=== PATIENT | male | born 1940 | race Caucasian/White ===

== ENCOUNTER → 2017-05-25 | Day surgery (SDC) | payer MEDICARE, OTHER ==
[~2017-05-25] VITALS: Ht 172.7 cm; Wt 93.0 kg
[2017-05-25] VITALS (10 sets, daily range): BP systolic 142–165; BP diastolic 61–79; PULSE 63–78; RESP 13–19; O2SAT 93–100
[~2017-05-25] MED LIST: ADV250INH IH; ALBU8.5H2 INHALATION; ALFU10TA11 PO; AMLO10TA3 PO; ASPI-973 PO; ATOR40TA69 PO; Dexamethasone 4 mg/mL Inj IVPUSH PRN; EPHEDrine Sulfate 50 mg/mL Inj IVPUSH PRN; FLUT16SP NS; FUR20 PO; Furosemide 10 mg/mL 2 mL Inj IV ONE; HYDR-4003 PO; HYDROmorphone 1 mg/mL Inj IVPUSH PRN; KETO10TA PO; Ketamine 10 mg/mL 20 mL Inj ONE; LEVO75TA4 PO; Lactated Ringer's 1,000 ML IV SCH; Lactated Ringer's 500 ML IV PRN; MULT1CAP33 PO; MetoCLOpramide 5 mg/mL 2 mL Inj IVPUSH PRN; ONDA-53 PO; OXYC-530 PO; Ondansetron 2 mg/mL 2 mL Inj IVPUSH PRN; Ondansetron 2 mg/mL 2 mL Inj ONE; PANT40TA3 PO; Phenylephrine 10,000 mCg/mL Inj IVPUSH PRN; Promethazine ORAL; Propofol 10,000 mCg/mL 20 mL Inj ONE; TAMS0.4C98 PO; fentaNYL-PF 50 mCg/mL 2 mL Inj IVPUSH PRN; oxyCODONE-Acetamin 5-325 mg Tablet PO PRN
--- NOTE | 2017-05-25 08:28 | PCM.HPANE ---
Patient Data Surgeon Admitting Provider: Attending Provider:Niko Castañeda MD Primary Care Physician:Gianni Delatorre MD Other [place] Anest[place] Reason for Visit Left Ureteral Calculus Ht/WT & BMI Height (Feet): 5 Height (Inches): 8 Weight (Kilograms): 99.34 Body Mass Index 33.00 Allergies Coded Allergies: tramadol (Verified Allergy, Severe, SHORT OF BREATH, 05/25/17) metoprolol (Verified Adverse Reaction, Severe, LOW HEART RATE AND FATIGUE , 05/25/17) lisinopril (Verified Adverse Reaction, Intermediate, COUGH, 05/25/17) losartan (Verified Adverse Reaction, Unknown, 05/25/17) Past Anesthesia History Anesthesia History: Denies:: Abnormal Airway, Anesthesia Reactions (felt "panicky" last surgery when mask placed, felt as if he struggled), Difficult Intubation, Fam Anesthesia Reaction, Fam Malignant Hypertherm, Malignant Hyperthermia Diabetes History Hx Diabetes?: No MRSA MRSA: No Medications Hypertension Medication: Yes Home Meds Incl Beta Bita: No Reported Medications Ondansetron 4 Mg Tablet4 Mg PO QID 05/12/17 Hydrocodone-Acetaminophen 5-325 mg 1 Each Tablet1 Tablet PO Q4H PRN For Pain Ref 0 05/12/17 Levothyroxine 75 Mcg [id number] Mcg PO DAILY Ref 0 05/12/[address] 40 Mg Tablet.dr40 Mg PO DAILY Ref 0 05/12/17 Albuterol HFA (Proair HFA)8.5 Gm Hfa.aer.ad2 Puffs INHALATION Q4H #1 INHALER 05/12/17 Amlodipine 10 Mg Xpaylt91 Mg PO DAILY Ref 0 05/12/17 Fluticasone/Salmeterol (Advair 250-50 Diskus)60 Puff/Inh Disk1 Puff IH BID #1 DISK Ref 0 05/12/17 Fluticasone Propionate (Fluticasone Propionate Nasal)16 Gm [place].susp2 [place] NS BID #16 GM Ref 0 05/12/17 Aspirin 81 Mg Nkdgpp41 Mg PO DAILY Ref 0 05/12/17 Tamsulosin (Flomax)0.4 Mg Capsule0.4 Mg PO DAILY Ref 0 05/12/17 Atorvastatin Calcium 40 Mg Lfytnk90 Mg PO DAILY Ref 0 05/12/17 Furosemide 20 Mg Tab20 Mg PO DAILY 30 Days Ref 0 05/12/17 Multivitamin (Multivitamins)1 Each Capsule1 Each PO QPM 05/12/17 Discontinued Reported Medications [Promethazine] No Conflict CheckUnknown Dose ORAL 05/12/17 Ketorolac Tromethamine 10 Mg Mgioay44 Mg PO QID 30 Days 05/12/17 Alfuzosin ER 10 Mg Tab.er.24h10 Mg PO DAILY 05/12/17 oxyCODONE 5 Mg Tablet5 Mg PO Q4H PRN For Pain Ref 0 05/12/17 History History of ENT Problems?: Yes HEENT History: Positive for:: Cataracts Denies:: Abnormal Airway Difficult Intubation Dysphagia Sinus Problem Denture Type: None Teeth Condition: Within Normal Limits Hx of Heart Problems?: Yes Cardiovascular History: Positive for:: Chest Pain Hypertension Hx of Respiratory Problem?: Yes Respiratory History: Positive for:: Asthma (seasonal) Dyspnea Pneumonia Denies:: COPD Chest Surgery Emphysema Hemoptysis Oxygen Administration Tuberculosis Use of C-PAP Machine Hx Neurologic Problems?: Yes Neurological History: Denies:: Alzheimer's Disease CVA Dementia Dizziness Headaches Multiple Sclerosis Parkinson's Disease Seizures Hx of GI Problems?: Yes Hx of Problems?: Yes Genitourinary History: Positive for:: Kidney Stones (left ureteral stone current admission problem- surg here 05/12) Denies:: HX of Hemodialysis Urinary Tract Infection HX of Peritoneal Dialysis: No Male Hx: Positive for:: Prostate Problems Denies:: Scrotal Mass Testicular Surgery Skin History: Denies:: History Skin Disorders? Pressure Ulcers Hx Musculoskeletal Problems?: Yes Musculoskeletal History: Positive for:: Back Injury Denies:: Joint Replacement Musculoskeletal Trauma Hx of Psycho/Social Problems?: No Psycho Social History: Denies:: Anxiety Hx Depression Hx Surgeries?: Yes (Tonsillectomy, angioplasty) Hx Any Other Health Problems?: Yes Other History: Positive for:: Hospitalization (Brachytherapy for prostate cancer ) Thyroid Disease (Hypothyroidism) Denies:: Endocrine Disease History Blood Transfusions: Denies:: Blood Transfuse Reaction Blood Transfusions Hx Diabetes: No Hx Alcohol Use: Yes (wine with meal occasionally)Hx Substance Use: No Smoking Status: Never Smoker Stop/Bang S-Snoring: Do You Snore Loudly: No T-Tired: feel tired, fatigued: No O-Obsered: Observed not breath: No P-Blood Pressure: treated: Yes B- Body Mass Index > 35 kg/m2: No A- Age over 50: Yes N- Neck Large Circumference: No G- Gender Male: Yes FLOR Total Score: 3 FLOR Risk Assessment: Low Risk, <3 Yes Risk Assessment Category Category 1A: Patient has history of documented sleep apnea, and HAS NOT received any narcotic, sedative or anesthesia administration during this stay. Category 1B: Patient has history of documented sleep apnea, and HAS received any narcotic , sedative or anesthesia administration during this stay Category 2: Patient has SUSPECTED Obstructive Sleep Apnea, and HAS received any narcotic , sedative or anesthesia administration during this stay. Category 3: Patient has SUSPECTED Obstructive Sleep Apnea and HAS NOT received narcotic, sedative or anesthesia administration during this stay. Category 4: Outpatient in Procedural Areas with known sleep apnea or who screen positive for High Risk via the STOP/BANG questionnaire. Exam Exam General Appearance: Alert, Oriented X3, Cooperative, No Acute Distress HEENT/AIRWAY: MP 2 Lungs: Clear to Auscultation, Normal Air Movement Heart: Exam Unremarkable, Regular Rate/Rhythm, No Murmurs/Rubs/Gallops Plan Impression Patient chart reviewed, patient interviewed and anesthestic plan with risks, benefits, and alternatives discussed, and informed consent obtained. NPO per Anesth. Guidelines: Yes ASA Physical Status: ASA2 Mod Systemic Disease Anesthetic Plan: GA Bene/Risks/Altern/Consents: Yes HP Complete Prior to Induction: Yes Sam Hooper MD May 25, 2017 08:28
[2017-05-25] MEDS: Lactated Ringer's 1,000 ML IV SCH ×2 (12:17→14:20)
--- NOTE | 2017-05-25 17:01 | PCM.ANEP1 ---
Post Anesthesia PACU Phase 1 Assessment Vital Signs Vital Signs Date Time Temp Pulse Resp B/P Pulse Ox O2 Delivery O2 Flow Rate FiO2 05/25/17 16:47 69 16 143/67 94 Room Air 05/25/17 16:40 63 19 146/74 94 Room Air 05/25/17 16:30 68 15 144/61 94 Room Air 05/25/17 16:15 65 14 155/66 93 Room Air 05/25/17 16:00 66 13 148/68 95 Room Air 05/25/17 15:45 72 16 157/71 100 Simple Mask 8 05/25/17 15:40 76 16 161/76 99 Simple Mask 8 05/25/17 15:35 78 17 165/79 99 Simple Mask 8 05/25/17 15:33 36.5 78 15 154/79 99 Simple Mask 8 05/25/17 11:14 74 16 142/73 94 Anesthetic Administered: GA Level of Alertness: Sleepy, easy to arouse FREEMAN's with Equal Strength: Yes Pain: No Nausea or Vomiting: No CV Function & Hydration Stable: Yes Airway Device: Oralpharangeal Airway Oxygen Delivery: Simple Mask Lungs: Clear to Auscultation, Normal Air Movement Dermatome Level: Full Sensation PACU Phase 2 Assessment Complications: No Follow up Care: No Patient Instructions Provided: N/A Sam Hooper MD May 25, 2017 17:01
--- NOTE | 2017-05-25 18:22 | OP ---
[address] [address] OPERATIVE REPORT PATIENT: ZO MORAES : 1940 MR#: [id number] ADMIT: 05/25/2017 JOB ID: [id number] DATE OF SURGERY: 05/25/2017 PREOPERATIVE DIAGNOSIS(ES): 1. A 5 x 6 mm obstructing left proximal ureteral calculus. 2. Left nephrolithiasis x2. 3. History of intractable left renal colic. 4. Retained left ureteral stent. POSTOPERATIVE DIAGNOSIS(ES): 1. A 5 x 6 mm obstructing left proximal ureteral calculus. 2. Left nephrolithiasis x2. 3. History of intractable left renal colic. 4. Retained left ureteral stent. 5. Interval distal migration of the two previously positioned 8 mm left renal calculi into the proximal left ureter. PROCEDURE PERFORMED: Left extracorporeal shock wave lithotripsy (maximal power level 8.0 x3500 shocks). SURGEON: Niko Castañeda MD ANESTHESIOLOGIST: Sam Hooper MD ANESTHESIA: General. PROCEDURE SUMMARY: The patient was positioned supine on the lithotripsy gurney and the above-described stone was localized in the X, Y and Z plane. Lithotripsy was then commenced at minimal power level and gradually increased to maximum power level. The stone and its fragments were relocalized numerous times throughout the case using C-arm radiography. The procedure was then terminated. The patient was awakened, transferred to the gurney and transferred to the recovery area awake in stable condition. The patient tolerated the procedure well.
== END | disposition home or self-care (01) ==
LOC: SAS 10:56
PROVIDERS: ATTEND Specialist
DX: N20.2 Calculus of kidney with calculus of ureter (principal); I25.10 Atherosclerotic heart disease of native coronary artery without angina pectoris; I10 Essential (primary) hypertension; J45.909 Unspecified asthma, uncomplicated; Z79.51 Long term (current) use of inhaled steroids; Z79.82 Long term (current) use of aspirin
CPT/HCPCS: 50590; J0131; J1940; J2405; J2704; J7120